=== PATIENT | male | born 1985 | race Two or more races ===

== ENCOUNTER 2016-09-23 06:11 | Emergency (ER) | payer SELFPAY ==
[~2016-09-23] VITALS: Ht 182.9 cm; Wt 119.3 kg
[~2016-09-23 06:11] MED LIST: BECL8.7A6 IH; Doxycycline Hyclate PO; LORA10TA3 PO; PRED20TA PO; PROAIR HFA8.5 GM IH
[2016-09-23 06:18] VITALS: BP 146/89
[2016-09-23] MEDS ORDERED: AMOX1TAB61 PO (06:28)
--- NOTE | 2016-09-23 06:32 | PHYS DOC ---
Past Medical History Past Medical History: Asthma Past Surgical History: No Surgical History Alcohol Use: Occasionally Drug Use: None Adult General Chief Complaint Chief Complaint: Congestion HPI HPI Patient is a 31 year old male who presents with 2 weeks of sinus congestion/ drainage, mild sore throat and itchy ears. No fevers, minimal cough. Intermittent headaches and can feel lightheaded. No known medical problems/no h /o HTN. [place] [facility] [place] Review of Systems Review of Systems Constitutional: Denies fever or chills [] Eyes: Denies change in visual acuity, redness, or eye pain [] HENT: per HPI Respiratory: Denies cough or shortness of breath [] Cardiovascular: Denies chest pain GI: Denies abdominal pain, nausea, vomiting, bloody stools or diarrhea [] : Denies dysuria or hematuria [] Musculoskeletal: Denies back pain or joint pain [] Integument: Denies rash or skin lesions [] Neurologic: Denies headache, focal weakness or sensory changes [] Allergies Allergies Allergies Coded Allergies Type Severity Reaction Last Updated Verified Iodinated Contrast Media - IV Dye Allergy Intermediate SWELLING 02/17/15 Yes Physical Exam Physical Exam Constitutional: Well developed, well nourished, no acute distress, non-toxic appearance. [] HENT: Normocephalic, atraumatic, bilateral external ears normal, oropharynx moist, no oral exudates, nose normal. Normal TMs bilaterally Eyes: PERRLA, EOMI, conjunctiva normal, no discharge. [] Neck: Normal range of motion, no tenderness, supple, no stridor. [] Cardiovascular:Heart rate regular with regular rhythm, no murmur [] Lungs & Thorax: Bilateral breath sounds clear to auscultation , no wheeze or crackles Skin: Warm, dry, no erythema, no rash. [] Extremities: No tenderness, no cyanosis, no clubbing, ROM intact, no edema. [] Neurologic: Alert and oriented X 3, normal motor function, normal sensory function, no focal deficits noted. [] Psychologic: Affect normal, judgement normal, mood normal. [] Current Patient Data Vital Signs Vital Signs Date Time Temp Pulse Resp B/P Pulse Ox O2 Delivery O2 Flow Rate FiO2 09/23/16 06:18 98.6 92 18 94 Room Air 98.6 EKG EKG [] Radiology/Procedures Radiology/Procedures [] Course & Med Decision Making Course & Med Decision Making Pertinent Labs and Imaging studies reviewed. (See chart for details) as pt's had symptoms for 2 weeks, will treat with augmentin for sinusitis. Pt counseled on the need to f/u PCP and have BP rechecked. Dragon Disclaimer Dragon Disclaimer This electronic medical record was generated, in whole or in part, using a voice recognition dictation system. Departure Departure Impression: Primary Impression: Sinusitis Disposition: HOME, SELF-CARE Condition: STABLE Patient Instructions: Sinusitis, [id number] Scripts Amoxicillin/Potassium Clav (Augmentin 875-125 Tablet)1 Each Tablet1 Tab PO BID # 20 TAB Prov:DEACON SOLORIO MD 09/23/16 DEACNO SOLORIO MD September 23, 2016 06:32
== END 2016-09-23 06:35 | disposition home or self-care (01) ==
LOC: ER 06:11
DX: J32.9 Chronic sinusitis, unspecified (principal); J45.909 Unspecified asthma, uncomplicated; Z91.041 Radiographic dye allergy status
CPT/HCPCS: 99283

== ENCOUNTER 2016-11-20 18:37 | Emergency (ER) | payer SELFPAY ==
[~2016-11-20] VITALS: Ht 182.9 cm; Wt 113.4 kg
[~2016-11-20 18:37] MED LIST changes: +AMOX1TAB61 PO
[2016-11-20 18:47] VITALS: BP 155/76
--- NOTE | 2016-11-20 19:19 | PHYS DOC ---
Past Medical History Past Medical History: Asthma Past Surgical History: No Surgical History Alcohol Use: Occasionally Drug Use: None Adult General Chief Complaint Chief Complaint: ASTHMA HPI HPI Patient is a 31 year old male with history of asthma who presents with cough and shortness of breath that began yesterday. Patient states he used his inhaler this morning with minimal relief. Patient denies any fever. Review of Systems Review of Systems Constitutional: Denies fever or chills [] Eyes: Denies change in visual acuity, redness, or eye pain [] HENT: Denies nasal congestion or sore throat [] Respiratory: cough and shortness of breath [] Cardiovascular: No additional information not addressed in HPI [] GI: Denies abdominal pain, nausea, vomiting, bloody stools or diarrhea [] : Denies dysuria or hematuria [] Musculoskeletal: Denies back pain or joint pain [] Integument: Denies rash or skin lesions [] Neurologic: Denies headache, focal weakness or sensory changes [] Endocrine: Denies polyuria or polydipsia [] Current Medications Current Medications Current Medications Medications (Trade) Dose Ordered Sig/Carlos Start Time Stop Time Status Last Admin Dose Admin Albuterol/ Ipratropium (Duoneb) 3 ml 1X ONCE 11/20/16 19:30 11/20/16 19:31 DC 11/20/16 19:27 3 ML Prednisone (Prednisone) 60 mg 1X ONCE 11/20/16 19:30 11/20/16 19:31 DC 11/20/16 19:27 60 MG Allergies Allergies Allergies Coded Allergies Type Severity Reaction Last Updated Verified Iodinated Contrast Media - IV Dye Allergy Intermediate SWELLING 02/17/15 Yes Physical Exam Physical Exam Constitutional: Well developed, well nourished, no acute distress, non-toxic appearance. [] HENT: Normocephalic, atraumatic, bilateral external ears normal, oropharynx moist, no oral exudates, nose normal. [] Eyes: PERRLA, EOMI, conjunctiva normal, no discharge. [] Neck: Normal range of motion, no tenderness, supple, no stridor. [] Cardiovascular:Heart rate regular rhythm, no murmur [] Lungs & Thorax: Limited air movement noted on exam. No wheezing. Abdomen: Bowel sounds normal, soft, no tenderness, no masses, no pulsatile masses. [] Skin: Warm, dry, no erythema, no rash. [] Back: No tenderness, no CVA tenderness. [] Extremities: No tenderness, no cyanosis, no clubbing, ROM intact, no edema. [] Neurologic: Alert and oriented X 3, normal motor function, normal sensory function, no focal deficits noted. [] Psychologic: Affect normal, judgement normal, mood normal. [] Current Patient Data Vital Signs Vital Signs Date Time Temp Pulse Resp B/P (MAP) Pulse Ox O2 Delivery O2 Flow Rate FiO2 11/20/16 19:30 Room Air 11/20/16 18:47 98.5 77 20 98 98.5 EKG EKG [] Radiology/Procedures Radiology/Procedures [] Course & Med Decision Making Course & Med Decision Making Pertinent Labs and Imaging studies reviewed. (See chart for details) This is a 31-year-old male patient with history of asthma who presents with shortness of breath and cough since yesterday. Chest x-ray interpreted by radiologist Dr. Wong is negative for any acute findings. Patient had decreased air movement on arrival to the ED. He was given a DuoNeb treatment and started on prednisone. His lungs have cleared up. He states his breathing is back to baseline. O2 sats have remained above 98% on room air with heart rate at 77. Discharged with a tapering dose of prednisone. He already has inhalers at home. Follow-up with his doctor [place] [facility] [place]. Dragon Disclaimer Dragon Disclaimer This electronic medical record was generated, in whole or in part, using a voice recognition dictation system. Departure Departure Impression: Primary Impression: Asthma exacerbation Additional Impression: Acute bronchitis Disposition: HOME, SELF-CARE Condition: STABLE Referrals: NO PCP (PCP) Follow-up with your doctor in 1 week Patient Instructions: Acute Bronchitis, Asthma, Adult Additional Instructions: You seen for an asthma exacerbation and acute bronchitis. Take the prescribed medicines as ordered. Follow-up next week. Come back to the ED if symptoms worsen. Scripts Cetirizine Hcl (ZYRTEC) 10 Mg Tablet 1 TAB PO DAILY, #30 TAB 3 Refills Prov: MUTUNGA,ZOE ABLE BODIED TANKERMAN 11/20/16 Benzonatate (TESSALON PERLE) 100 Mg Capsule 1 CAP PO TID, #30 CAP Prov: MUTUNGAZOE ABLE BODIED TANKERMAN 11/20/16 Prednisone (PREDNISONE) 10 Mg Tablet 10 MG PO UD for PREDNISONE TAPER, #39 TAB 0 Refills Take 3 tablets by mouth twice a day for 3 days, then take 2 tablets by mouth twice a day for 3 days, then take 1 tablet by mouth twice a day for 3 days, then take 1 tablet by mouth daily x 3 days, then stop. Prov: ZOE RENEE APRN 11/20/16 Problem Qualifiers Additional Impression: Acute bronchitis Bronchitis organism: unspecified organism Qualified Codes: J20.9 - Acute bronchitis, unspecified ZOE RENEE ABLE BODIED TANKERMAN Nov 20, 2016 19:19
[2016-11-20] MEDS ORDERED: predniSONE 20 MG TABLET PO ONE (19:30)
[2016-11-20] MEDS ORDERED: IPRATRPIUM/ALBUTEROL 0.5/2.5MG 3 ML NEBU. NEB ONE (19:30)
[2016-11-20] MEDS ORDERED: CETI10TA22 PO (19:48)
[2016-11-20] MEDS ORDERED: BENZ100C PO (19:48)
[2016-11-20] MEDS ORDERED: PRED-220 PO (19:48)
--- NOTE | 2016-11-21 09:10 | RAD ---
Chest, 2 views, 11/20/2016: History: Cough Comparison is made to a study from 02/16/2015. The heart size and pulmonary vascularity are normal. No pulmonary infiltrates are seen. There is no evidence of pleural fluid. IMPRESSION: No acute cardiopulmonary abnormality is detected.
== END 2016-11-20 19:56 | disposition home or self-care (01) ==
LOC: ER 18:37
DX: J45.901 Unspecified asthma with (acute) exacerbation (principal); J20.9 Acute bronchitis, unspecified; Z91.041 Radiographic dye allergy status
CPT/HCPCS: 71020; 94250; 94640; 99284; J7512; J7620

== ENCOUNTER 2017-01-14 20:50 | Emergency (ER) | payer SELFPAY ==
[~2017-01-14] VITALS: Ht 182.9 cm; Wt 117.9 kg
[~2017-01-14 20:50] MED LIST changes: +BENZ100C PO; +CETI10TA22 PO; +PRED-220 PO
[2017-01-14 20:55] VITALS: BP 157/89
--- NOTE | 2017-01-14 21:03 | PHYS DOC ---
Past Medical History Past Medical History: Asthma Past Surgical History: No Surgical History Alcohol Use: Occasionally Drug Use: None Adult General Chief Complaint Chief Complaint: Congestion HPI HPI Patient is a 31 year old male with history of asthma and sinus infections who presents with nose or congestion for one week. Patient denies any fever, he states it feels like the last time he had a sinus infection. Review of Systems Review of Systems Constitutional: See history of present illness Eyes: Denies change in visual acuity, redness, or eye pain [] HENT: nasal congestion Respiratory: Denies cough or shortness of breath [] Cardiovascular: No additional information not addressed in HPI [] GI: Denies abdominal pain, nausea, vomiting, bloody stools or diarrhea [] : Denies dysuria or hematuria [] Musculoskeletal: Denies back pain or joint pain [] Integument: Denies rash or skin lesions [] Neurologic: Denies headache, focal weakness or sensory changes [] Allergies Allergies Allergies Coded Allergies Type Severity Reaction Last Updated Verified Iodinated Contrast- Oral and IV Dye Allergy Intermediate SWELLING 02/17/15 Yes Physical Exam Physical Exam Constitutional: Well developed, well nourished, no acute distress, non-toxic appearance. [] HENT: Normocephalic, atraumatic, bilateral external ears normal, oropharynx moist, no oral exudates, patient sounds congested nasally. Mild frontal and maxillary sinus tenderness. Boggy erythematous nasal turbinates Eyes: PERRLA, EOMI, conjunctiva normal, no discharge. [] Neck: Normal range of motion, no tenderness, supple, no stridor. [] Cardiovascular:Heart rate regular rhythm, no murmur [] Lungs & Thorax: Bilateral breath sounds clear to auscultation [] Abdomen: Bowel sounds normal, soft, no tenderness, no masses, no pulsatile masses. [] Skin: Warm, dry, no erythema, no rash. [] Back: No tenderness, no CVA tenderness. [] Extremities: No tenderness, no cyanosis, no clubbing, ROM intact, no edema. [] Neurologic: Alert and oriented X 3, normal motor function, normal sensory function, no focal deficits noted. [] Psychologic: Affect normal, judgement normal, mood normal. [] Current Patient Data Vital Signs Vital Signs Date Time Temp Pulse Resp B/P (MAP) Pulse Ox O2 Delivery O2 Flow Rate FiO2 01/14/17 20:55 97.8 85 20 96 Room Air 97.8 EKG EKG [] Radiology/Procedures Radiology/Procedures [] Course & Med Decision Making Course & Med Decision Making Pertinent Labs and Imaging studies reviewed. (See chart for details) Patient has a sinus infection. Discharged with Augmentin, Flonase, and pseudoephedrine. Follow-up with the PCP in 1-2 weeks. Dragon Disclaimer Dragon Disclaimer This electronic medical record was generated, in whole or in part, using a voice recognition dictation system. Departure Departure Impression: Primary Impression: Acute sinusitis Disposition: HOME, SELF-CARE Condition: STABLE Referrals: NO PCP (PCP) follow up with your doctor in one week Patient Instructions: Sinusitis Additional Instructions: You were seen for sinus infection. Take the prescribed antibiotics as ordered, ensure you complete them, use the prescribed medicines as well. Follow-up with your doctor in 1-2 weeks. Scripts Pseudoephedrine Hcl (PSEUDOEPHEDRINE) 120 Mg Tablet.er 1 TAB PO BID, #20 TAB Prov: ZOE RENEE APRN 01/14/17 Fluticasone Propionate (Flonase Allergy Relief) 9.9 Ml [place].susp 2 SPRAYS NS DAILY, #1 BOTTLE Prov: ZOE RENEE APRN 01/14/17 Amoxicillin/Potassium Clav (AUGMENTIN 875-125 TABLET) 1 Each Tablet 1 TAB PO BID, #20 TAB Prov: ZOE RENEE APRN 01/14/17 Problem Qualifiers Primary Impression: Acute sinusitis Sinusitis location: frontal Recurrence: recurrent Qualified Codes: J01.11 - Acute recurrent frontal sinusitis ZOE RENEE APRN Jan 14, 2017 21:03
[2017-01-14] MEDS ORDERED: PSEU120T58 PO (21:07)
[2017-01-14] MEDS ORDERED: FLUT9.9S NS (21:07)
[2017-01-14] MEDS ORDERED: AMOX1TAB61 PO (21:07)
== END 2017-01-14 21:15 | disposition home or self-care (01) ==
LOC: ER 20:50
DX: J01.90 Acute sinusitis, unspecified (principal); J45.909 Unspecified asthma, uncomplicated; Z91.041 Radiographic dye allergy status
CPT/HCPCS: 99283

== ENCOUNTER 2017-01-19 20:14 | Emergency (ER) | payer SELFPAY ==
[~2017-01-19] VITALS: Ht 182.9 cm; Wt 117.9 kg
[~2017-01-19 20:14] MED LIST changes: +FLUT9.9S NS; +PSEU120T58 PO
[2017-01-19] MEDS ORDERED: SULF1TAB24 PO (21:24)
--- NOTE | 2017-01-19 21:24 | PHYS DOC ---
Past Medical History Past Medical History: Asthma Past Surgical History: No Surgical History Alcohol Use: Occasionally Drug Use: None Adult General Chief Complaint Chief Complaint: Congestion [facility] Patient is a 31 year old female presents to the emergency department with complaints of nasal congestion. He was evaluated on January 14 for same complaint as well as January 16 for asthma exacerbation. Patient was discharged home on amoxicillin, Flonase and Sudafed after his visit on January 14 for diagnosis sinusitis. Patient states he continues to have nasal congestion. No fever. He has a mild facial pain without headache, no visual disturbance. No dental pain. Review of Systems Review of Systems Constitutional: Denies fever or chills [] Eyes: Denies change in visual acuity, redness, or eye pain [] HENT: Nasal congestion Respiratory: Denies cough or shortness of breath [] Cardiovascular: No additional information not addressed in HPI [] GI: Denies abdominal pain, nausea, vomiting, bloody stools or diarrhea [] : Denies dysuria or hematuria [] Musculoskeletal: Denies back pain or joint pain [] Integument: Denies rash or skin lesions [] Neurologic: Denies headache, focal weakness or sensory changes [] Endocrine: Denies polyuria or polydipsia [] Allergies Allergies Allergies Coded Allergies Type Severity Reaction Last Updated Verified Iodinated Contrast- Oral and IV Dye Allergy Intermediate SWELLING 02/17/15 Yes Physical Exam Physical Exam Constitutional: Well developed, well nourished, no acute distress, non-toxic appearance. [] HENT: Normocephalic, atraumatic, bilateral external ears normal, oropharynx moist with postnasal , no oral exudates, anterior turbinates swollen Eyes: PERRLA, EOMI, conjunctiva normal, no discharge. [] Neck: Normal range of motion, no tenderness, supple, no stridor. [] Cardiovascular:Heart rate regular rhythm, no murmur [] Lungs & Thorax: Bilateral breath sounds clear to auscultation [] Abdomen: Bowel sounds normal, soft, no tenderness, no masses, no pulsatile masses. [] Skin: Warm, dry, no erythema, no rash. [] Back: No tenderness, no CVA tenderness. [] Extremities: No tenderness, no cyanosis, no clubbing, ROM intact, no edema. [] Neurologic: Alert and oriented X 3, normal motor function, normal sensory function, no focal deficits noted. [] Psychologic: Affect normal, judgement normal, mood normal. [] EKG EKG [] Radiology/Procedures Radiology/Procedures [] Course & Med Decision Making Course & Med Decision Making Pertinent Labs and Imaging studies reviewed. (See chart for details) [] Dragon Disclaimer Dragon Disclaimer This electronic medical record was generated, in whole or in part, using a voice recognition dictation system. Departure Departure Impression: Primary Impression: Sinusitis Disposition: HOME, SELF-CARE Condition: STABLE Referrals: NO PCP (PCP) [facility] Patient Instructions: Sinus Headache, [id number] Additional Instructions: [id number] nasal rinse as labeled and is indicated for symptom management. Continue current medications. Scripts Sulfamethoxazole/Trimethoprim (BACTRIM DS TABLET) 1 Each Tablet 1 TAB PO BID, #20 TAB Prov: JAXON CARDENAS APRN 01/19/17 Problem Qualifiers Primary Impression: Sinusitis Sinusitis location: maxillary Chronicity: acute Recurrence: not specified as recurrent Qualified Codes: J01.00 - Acute maxillary sinusitis, unspecified JAXON CARDENAS APRN Jan 19, 2017 21:24
[2017-01-19 21:29] VITALS: BP 136/78
== END 2017-01-19 21:39 | disposition home or self-care (01) ==
LOC: ER 20:14
DX: J01.00 Acute maxillary sinusitis, unspecified (principal); J45.909 Unspecified asthma, uncomplicated; Z91.041 Radiographic dye allergy status
CPT/HCPCS: 99283

== ENCOUNTER 2017-06-07 14:55 | Emergency (ER) | payer SELFPAY ==
[2017-06-07] MEDS: IPRATRPIUM/ALBUTEROL 0.5/2.5MG 3 ML NEBU. NEB (15:59)
[2017-06-07] MEDS: predniSONE 10 MG TABLET PO (16:15)
== END 2017-06-07 16:48 | disposition home or self-care (01) ==
LOC: ER 14:55
DX: J45.21 Mild intermittent asthma with (acute) exacerbation (principal); Z91.041 Radiographic dye allergy status
CPT/HCPCS: 94640; 99283-25; J7512; J7620

== ENCOUNTER 2017-11-14 10:47 | Emergency (ER) | payer OTHER ==
[2017-11-14] MEDS: methylPREDNISolone SOD SUCC PF 125 MG/2 ML VIAL. IM (11:29)
[2017-11-14] MEDS: IPRATRPIUM/ALBUTEROL 0.5/2.5MG 3 ML NEBU. NEB (11:31)
== END 2017-11-14 12:05 | disposition home or self-care (01) ==
LOC: ER 12:05
DX: J45.901 Unspecified asthma with (acute) exacerbation (principal); Z91.041 Radiographic dye allergy status
CPT/HCPCS: 94640; 96372; 99283; J2930; J7620

== ENCOUNTER 2017-11-23 17:52 | Emergency (ER) | payer OTHER ==
[2017-11-23] MEDS: IPRATRPIUM/ALBUTEROL 0.5/2.5MG 3 ML NEBU. NEB ×2 (18:53)
[2017-11-23] MEDS: methylPREDNISolone SOD SUCC PF 125 MG/2 ML VIAL. IM (19:00)
== END 2017-11-23 19:29 | disposition home or self-care (01) ==
LOC: ER 17:52
DX: J45.901 Unspecified asthma with (acute) exacerbation (principal); Z91.041 Radiographic dye allergy status
CPT/HCPCS: 71046; 94640; 96372; 99284-25; J2930; J7620

== ENCOUNTER 2017-12-01 17:47 | Emergency (ER) | payer OTHER ==
[2017-12-01] MEDS: methylPREDNISolone SOD SUCC PF 125 MG/2 ML VIAL. IM (18:14)
[2017-12-01] MEDS: ALBUTEROL SULFATE 2.5 MG/3 ML NEBU. CONT NEB (18:26)
[2017-12-01] MEDS: IPRATROPIUM BROMIDE 0.5 MG/2.5 ML NEBU. NEB (18:26)
== END 2017-12-01 19:40 | disposition home or self-care (01) ==
LOC: ER 17:47
DX: J45.901 Unspecified asthma with (acute) exacerbation (principal); Z91.041 Radiographic dye allergy status
CPT/HCPCS: 71046; 94640; 96372; 99284; J2930; J7613; J7644

== ENCOUNTER 2019-01-23 06:59 | Emergency (ER) | payer OTHER ==
[~2019-01-23] VITALS: Ht 182.9 cm; Wt 113.4 kg
[~2019-01-23 06:59] MED LIST changes: +ALBU1.25 NEB; +ALBU2.5V8 IH; +AMOX1TAB11 PO; +AZIT500T2 PO; +CETI10TA16 PO; +METH4TAB2 PO; +PRED50TA PO; -PROAIR HFA8.5 GM IH; +SULF1TAB24 PO
[2019-01-23 07:26] VITALS: BP 160/94
[2019-01-23] MEDS ORDERED: PENI500T PO (07:37)
--- NOTE | 2019-01-23 07:56 | PHYS DOC ---
Past Medical History Past Medical History: Asthma Past Surgical History: No Surgical History Alcohol Use: Occasionally Drug Use: None Adult General Chief Complaint Chief Complaint: SORE THROAT HPI HPI Patient is a 33 year old p/w cc of sore throat here with son same comlpaint family contacts recently dx'd with strep throat subj fever mild cough Review of Systems Review of Systems Constitutional: Denies fever or chills [] Eyes: Denies change in visual acuity, redness, or eye pain [] HENT: Denies nasal congestion or sore throat [] Respiratory: Denies cough or shortness of breath [] Cardiovascular: No additional information not addressed in HPI [] GI: Denies abdominal pain, nausea, vomiting, bloody stools or diarrhea [] : Denies dysuria or hematuria [] Musculoskeletal: Denies back pain or joint pain [] Integument: Denies rash or skin lesions [] Neurologic: Denies headache, focal weakness or sensory changes [] Endocrine: Denies polyuria or polydipsia [] All other systems were reviewed and found to be within normal limits, except as documented in this note. Allergies Allergies Allergies Coded Allergies Type Severity Reaction Last Updated Verified Iodinated Contrast Media Allergy Intermediate SWELLING 02/17/15 Yes Physical Exam Physical Exam Constitutional: Well developed, well nourished, no acute distress, non-toxic appearance. [] HENT: Normocephalic, atraumatic, bilateral external ears normal, oropharynx moist,b/l tonsillar erythema and swelling. no asymmetry uvula midline positive lymphadenopathy Eyes: PERRLA, EOMI, conjunctiva normal, no discharge. [] Neck: Normal range of motion, no tenderness, supple, no stridor. [] Cardiovascular:Heart rate regular rhythm, no murmur [] Lungs & Thorax: Bilateral breath sounds clear to auscultation [] Abdomen: Bowel sounds normal, soft, no tenderness, no masses, no pulsatile masses. [] Skin: Warm, dry, no erythema, no rash. [] Back: No tenderness, no CVA tenderness. [] Extremities: No tenderness, no cyanosis, no clubbing, ROM intact, no edema. [] Neurologic: Alert and oriented X 3, normal motor function, normal sensory function, no focal deficits noted. [] Psychologic: Affect normal, judgement normal, mood normal. [] Current Patient Data Vital Signs Vital Signs Date Time Temp Pulse Resp B/P (MAP) Pulse Ox O2 Delivery O2 Flow Rate FiO2 01/23/19 07:26 98.9 81 16 160/94 (116) 100 Room Air 98.9 EKG EKG [] Radiology/Procedures Radiology/Procedures [] Course & Med Decision Making Course & Med Decision Making Pertinent Labs and Imaging studies reviewed. (See chart for details) []talked about risks and benefits of abx, agreeable to it. given recent close contact pt prefers abx will just treat Dragon Disclaimer Dragon Disclaimer This electronic medical record was generated, in whole or in part, using a voice recognition dictation system. Departure Departure Impression: Primary Impression: Sore throat Disposition: HOME, SELF-CARE Condition: STABLE Patient Instructions: Sore Throat, [id number]-th-[id number] Scripts Penicillin V Potassium (PENICILLIN V POTASSIUM) 500 Mg Tablet 1 TAB PO QID, #40 TAB Prov: DARRYL GOLD MD 01/23/19 DARRYL GOLD MD Jan 23, 2019 07:56
== END 2019-01-23 07:46 | disposition home or self-care (01) ==
LOC: ER 06:59
DX: J02.9 Acute pharyngitis, unspecified (principal); R50.9 Fever, unspecified; R05 Cough; J45.909 Unspecified asthma, uncomplicated; Z91.041 Radiographic dye allergy status
CPT/HCPCS: 99283